=== PATIENT | male | born 1945 | race Caucasian/White ===

== ENCOUNTER → 2018-06-14 | Outpatient (CLI) | payer OTHER, MEDICARE ==
[~2018-06-14] MED LIST: ADULT LOW DOSE81 MG PO; ARTHRITIS PAIN650 M2 PO; ASPIRIN325; COLACE100 MG PO; FINASTERIDE5 MG PO; IBUPROFEN200 M2 PO; IRON PO; LIPITOR20 MG PO; METAMUCIL WAFER1 PK1 PO; MULTIVITAMINS PO; NORCO 5-325 TA1 EACH; OXYIR 5 MG CAPSU5 M1; XARELTO10 M1
== END ==
LOC: M.CT 08:24
DX: R91.1 Solitary pulmonary nodule (principal); E78.5 Hyperlipidemia, unspecified; J44.9 Chronic obstructive pulmonary disease, unspecified; M51.16 Intervertebral disc disorders with radiculopathy, lumbar region; I10 Essential (primary) hypertension; E78.00 Pure hypercholesterolemia, unspecified; Z96.651 Presence of right artificial knee joint; Z87.891 Personal history of nicotine dependence; Z72.89 Other problems related to lifestyle; Z88.8 Allergy status to other drugs, medicaments and biological substances; Z79.899 Other long term (current) drug therapy